=== PATIENT | female | born 1945 | race Caucasian/White ===

== ENCOUNTER → 2019-04-28 | Outpatient (CLI) | payer MEDICARE ==
[2019-04-28 12:34] LABS: Basophils % (A) 1 %; Eosinophils # (A) 0.4 k/uL (0-0.7); Eosinophils % (A) 6 %; HCT 41.2 % (34.0-46.0); HGB 13.2 gm/dL (11.4-16.0); Lymphocytes # (A) 1.2 k/uL (1.0-4.8); Lymphocytes % (A) 17 %; MCH 32.1 pg (25.0-35.0); MCHC 32.1 g/dL (31.0-37.0); Mean Platelet Volume 6.8; Monocytes # (A) 0.2 k/uL (0-1.0); Monocytes % (A) 3 %; Neutrophils # (A) 4.9 k/uL (1.3-7.7); Neutrophils % (A) 73 %; Platelet Count 181 k/uL (150-450); RBC 4.12 m/uL (3.80-5.40); RDW 13.2 % (11.5-15.5); WBC 6.8 k/uL (3.8-10.6)
[2019-04-28 12:40] LABS: INR 0.9 (<1.2); Partial Thromboplastin Time 22.3 sec (22.0-30.0); Prothrombin Time 9.5 sec (9.0-12.0)
[2019-04-28 13:19] LABS: Calcium 9.3 mg/dL (8.4-10.2); Potassium 4.3 mmol/L (3.5-5.1)
--- NOTE | 2019-04-28 16:26 | XR ---
EXAMINATION TYPE: XR chest 2V DATE OF EXAM: 04/28/2019 COMPARISON: NONE HISTORY: Presurgical, Z01.818 TECHNIQUE: Frontal and lateral views of the chest are obtained. FINDINGS: There is no focal air space opacity, pleural effusion, or pneumothorax seen. The cardiac silhouette size is within normal limits. There is a spinal curvature, thoracic lumbar scoliosis. The osseous structures are remarkable for suspected compression fracture at the lower thoracic spine, dev ne mineralization is reduced. IMPRESSION: No acute cardiopulmonary process. Suspect thoracic osteoporotic compression fracture is present
== END | disposition home or self-care (01) ==
LOC: LABPAT 10:57
PROVIDERS: ATTEND Orthopaedic Surgery Orthopaedic Surgery of the Spine
DX: Z01.818 Encounter for other preprocedural examination (principal)
CPT/HCPCS: 36415; 71046; 80048; 85025; 85610; 85730

== ENCOUNTER 2019-05-03 14:58 | Day surgery (SDC) | payer MEDICARE ==
[2019-04-29 11:25] VITALS: BMI 20.1
[~2019-05-03 14:58] MED LIST: DEXAMETHASONE SOD PHOSPHATE 10 MG/ML 1 ML VIAL IV ONE; LACTATED RINGERS 1,000 ML IV SCH; LIDOCAINE 1% 20 ML VIAL (10MG/ML) FOR IV START INTRADERMA PRN; MIDAZOLAM 2 MG/2 ML VIAL IV PRN; SODIUM CHLORIDE 0.9% IRRIGATIO 1,000 ML IRRIGATION ONE; fentaNYL (PF) 50 MCG/ML 2 ML AMP IV PRN
[2019-05-03 15:14] VITALS: TEMP 99
[2019-05-03] MEDS ORDERED: LIDOCAINE 0.5%-EPI 1:200,000 50 ML VIAL SQ ONE (17:15)
[2019-05-03] MEDS ORDERED: MIDAZOLAM 2 MG/2 ML VIAL ONE (17:15)
[2019-05-03] MEDS ORDERED: SUCCINYLCHOLINE CHLORIDE 100 MG/5 ML SYR IV ONE (17:15)
[2019-05-03] MEDS ORDERED: PROPOFOL 10 MG/ML 20 ML VIAL IV ONE (17:15)
[2019-05-03] MEDS ORDERED: PHENYLEPHRINE-0.9% NACL SYG 1 MG/10 ML SYRINGE ONE (17:15)
[2019-05-03] MEDS ORDERED: LIDOCAINE 1% INJ 10MG/ML (20 ML MDV) ONE (17:15)
[2019-05-03] MEDS ORDERED: fentaNYL (PF) 50 MCG/ML 2 ML AMP ONE (17:15)
[2019-05-03] MEDS ORDERED: IOPAMIDOL M200 10 ML VIAL MISCELLANE ONE (17:15)
[2019-05-03] MEDS ORDERED: MAGNESIUM HYDROXIDE 2,400 MG/10 ML CUP PO PRN (17:58)
[2019-05-03] MEDS ORDERED: KETOROLAC 30 MG/ML 1 ML VIAL IVP PRN (17:58)
[2019-05-03] MEDS ORDERED: BENZOCAINE/MENTHOL LOZENG 1 EACH LOZENGE MUCOUS MEM PRN (17:58)
[2019-05-03] MEDS ORDERED: HYDROmorphone 0.5 MG/0.5 ML SYRINGE IVP PRN (17:58)
[2019-05-03] MEDS ORDERED: ONDANSETRON 4 MG/2 ML VIAL IVP ONE (17:58)
[2019-05-03] MEDS ORDERED: HYDROcodone/APAP 5-325MG 1 EACH TAB PO PRN (17:58)
[2019-05-03] MEDS ORDERED: ALBUTEROL NEBULIZED 2.5 MG/3 ML INHALATION PRN (18:00)
[2019-05-03] MEDS ORDERED: GABAPENTIN 300 MG CAP PO PRN (18:00)
[2019-05-03] MEDS ORDERED: SODIUM CHLORIDE 0.9% 1,000 ML IV SCH (18:00)
--- NOTE | 2019-05-03 18:20 | P.OP ---
Date of Procedure: 05/03/19 Preoperative Diagnosis: T12 compression fracture, osteoporotic Thoracolumbar back pain Postoperative Diagnosis: Same Anesthesia: GETA Pathology: other (T12 vertebral body sent to pathology) Condition: stable Disposition: PACU Description of Procedure: BRIEF OPERATIVE NOTE Preoperative Diagnosis: Vertebral compression fracture, T12 osteoporotic Postoperative Diagnosis: Same Procedure: Kyphoplasty T12 Vertebral body biopsy T12 Use of biplanar fluoroscopic guidance Surgeon: Dr. Patel Structural Drafter: Aravind Potter is present throughout the entire the case persistence during positioning, dissection, exposure, visualization, and all crucial elements of the case as well as closure. Anesthesia: General anesthesia per Dr. Erwin Estimated blood loss: Less than 10 mL Specimen: Vertebral body biopsy of T12 sent to pathology in formalin Complications: None apparent Components implanted: Bone cement Disposition: To recovery room in good stable condition. OPERATIVE INDICATIONS The patient has been having issues in their back ever since sustaining an injury several months ago. The patient has been through conservative treatment. They attempted conservative care with bracing however they're not having any benefit despite brace use. They continue to have significant pain and debility due to their fracture. We discussed various treatment options including surgery, and the patient wishes to proceed with surgery We discussed the risk, patient's alternatives and benefits of surgery including but not limited to, risk of bleeding risk of infection, risk of need for further surgery, risk of decreased, loss of motion, loss of function, cement extravasation, nerve damage, paralysis, heart attack, blindness and . OPERATIVE SUMMARY After discussing all the risks, patient alternatives and benefits at length, the patient elected to proceed with surgical intervention, signed informed consent, and presented for their procedure. The patient was seen and examined in the preoperative holding area and the surgical site was marked. The patient was given antibiotics and brought to the operating room. The patient was sedated and intubated by anesthesia in standard fashion. The patient was positioned on to the operating room table in a prone position on the appropriate well-padded and well molded bilateral chest rolls. We were careful to pad any bony prominences and pressure points. We were careful to maintain the patient's cervical spine and good neutral alignment and position throughout. We used 2 C-arm machines to establish biplanar fluoroscopic guidance in AP and lateral positions. We were able to localize the fractures appropriately. The patient was prepped and draped in a normal standard fashion. An appropriate timeout and keystone protocol performed. We were able to proceed with the surgery. The local wound area was infiltrated with local anesthetic. An incision was made over the lateral aspect of the pedicle over the appropriate levels of T12 with a small 2 mm stab incision. Intraoperative fluoroscopy was taken which showed a marker at the appropriate level. With the appropriate level positively confirmed, I was able to position a sharp trocar over the lateral aspect of the pedicle. As able to advance the trocar into the pedicle and into the posterior aspect of vertebral body being careful to avoid penetration cephalad caudad or medially. The trocar was placed appropriately into the posterior aspect of vertebral body at the appropriate levels. This was confirmed with C-arm guidance. With the trocar intact I was then able to take a bone biopsy with a biopsy punch or a bony drill. The biopsy specimen was passed off to be sent to pathology in formalin. I was then able to place the kyphoplasty balloon within the vertebral body at T12. The position was checked on C-arm. I was able to inflate the balloon under low pressure and visualization with C-arm. The balloon was well enclosed within the vertebral body. The cement was prepared. With the cement at appropriate working condition the balloons were deflated and removed. I was able to place bony cement with trocar with the cement delivery device under low pressure. It had good fill within the vertebral body. We will place approximately 6 mL of bone cement within the vertebral body There is no evidence of any extravasation of the cement posteriorly toward the canal. The cement was well contained at the appropriate levels. The cement was allowed to cure appropriately. The trochars removed and final images were taken on C-arm. This showed the cement at the appropriate levels of T12. We were able to proceed with closure. The wound was cleaned and dried and dressed with the appropriate dressing. The drapes were broken down. The patient was gently rolled back onto their hospital bed being careful to maintain their cervical spine and good neutral alignment and position. They were woken up by anesthesia, extubated, and brought to the recovery room in good stable condition. The patient will be admitted to the hospital for observation and for appropriate postoperative care, medical management and monitoring. We will continue to follow them closely about the postoperative course.
[2019-05-03 19:21] VITALS: RESP 18
[2019-05-03 19:31] VITALS: BP 145/75; PULSE 75
--- NOTE | 2019-05-04 08:34 | FL ---
EXAMINATION TYPE: FL guidance operating room DATE OF EXAM: 05/03/2019 HISTORY: Flouroscopy time 63.9 seconds of fluoroscopy provided. IMPRESSION: 1. Fluoroscopy time.
[2019-05-04] MEDS ORDERED: ASCORBIC ACID 500 MG TAB PO SCH (09:00)
[2019-05-04] MEDS ORDERED: [UNRECOGNIZED DRUG - OTHER] PO SCH (09:00)
[2019-05-04] MEDS ORDERED: MULTIVITAMINS, THERA 1 EACH TAB PO SCH (09:00)
[2019-05-04] MEDS ORDERED: CALCIUM CARBONATE PO SCH (09:00)
[2019-05-04] MEDS ORDERED: VITAMIN D3 PO SCH (09:00)
== END 2019-05-03 19:50 | disposition home or self-care (01) ==
LOC: OR 14:58
PROVIDERS: ATTEND Orthopaedic Surgery Orthopaedic Surgery of the Spine
DX: M80.88XA Other osteoporosis with current pathological fracture, vertebra(e), initial encounter for fracture (principal); M41.26 Other idiopathic scoliosis, lumbar region; M47.26 Other spondylosis with radiculopathy, lumbar region; M51.37 Other intervertebral disc degeneration, lumbosacral region; M48.07 Spinal stenosis, lumbosacral region; M48.061 Spinal stenosis, lumbar region without neurogenic claudication; I51.9 Heart disease, unspecified; E78.5 Hyperlipidemia, unspecified; Z96.653 Presence of artificial knee joint, bilateral; Z83.3 Family history of diabetes mellitus; Z87.891 Personal history of nicotine dependence; I34.1 Nonrheumatic mitral (valve) prolapse; J45.909 Unspecified asthma, uncomplicated; Z85.828 Personal history of other malignant neoplasm of skin; Z79.1 Long term (current) use of non-steroidal anti-inflammatories (NSAID); Z79.899 Other long term (current) drug therapy; Z79.82 Long term (current) use of aspirin; Z79.891 Long term (current) use of opiate analgesic
CPT/HCPCS: 22513; 86900; 86901; 86850; 88307; 88311; 72020; C1713; J2250; J0690; J2001; J3010; J2370; J0330; J2704; Q9966

== ENCOUNTER → 2019-08-26 | Outpatient (CLI) | payer MEDICARE ==
--- NOTE | 2019-08-26 12:42 | CT ---
EXAMINATION TYPE: CT abdomen pelvis w con DATE OF EXAM: 08/26/2019 COMPARISON: NONE HISTORY: 73-year-old female Unspecified acute appendicitis, left sided pain TECHNIQUE: Contiguous axial scanning of the abdomen and pelvis following administration of 100 ml Iso jodi 300 IV contrast. Delayed images through the kidneys and coronal/sagittal reconstructions perform ed. CT DLP: 784 mGycm Automated exposure control for dose reduction was used. FINDINGS: Heart borderline enlarged without pericardial effusion. Small left-sided fat-containing [place] her rehana. Scattered moderate atherosclerotic calcifications abdominal aorta without aneurysm. No focal liver lesion. Portal venous system is patent. Bile duct mildly dilated 8 mm probably chronic in this patient. There is normal distal tapering. Gallbladder, right kidney,, spleen, and pancreas appear within normal limits. Parapelvic cysts within the left kidney. No dilated small bowel, free fluid, or free air. No mesenteric or retroperitoneal lymphadenopathy. Normal appendix. Scattered mild stool. Mild sigmoid diverticulosis. No pericolonic inflammatory harris e seen. No mesenteric or retroperitoneal lymphadenopathy. Bladder is urine distended. Mild bulging laxity of the levator ani musculature. Uterus is anteverted. Small ovaries are visualized. No abnormal fluid collection in the pelvis or pelvic lymphadenopathy. Bones: Osteopenia. Superior endplate deformity of L4 and vertebral compression collapse of T12 with p rior vertebroplasty. Mild retropulsion into the ventral spinal canal at this level. IMPRESSION: 1. MILD SIGMOID DIVERTICULOSIS WITHOUT EVIDENCE FOR ACUTE DIVERTICULITIS. 2. NORMAL APPENDIX. 3. MILD PELVIC FLOOR RELAXATION. 4. PRIOR VERTEBROPLASTY AT T12. CHRONIC APPEARING SUPERIOR ENDPLATE DEFORMITY OF L4.
== END | disposition home or self-care (01) ==
LOC: RADCTMAIN 10:25
PROVIDERS: ATTEND Surgery
DX: K57.30 Diverticulosis of large intestine without perforation or abscess without bleeding (principal); N81.89 Other female genital prolapse
CPT/HCPCS: 82565; 84520; 74177; 36415; Q9967 ×2

== ENCOUNTER 2019-10-08 11:05 | Inpatient (IN) | payer MEDICARE ==
[2019-10-08] MEDS ORDERED: HEPARIN SODIUM,PORCINE 5,000 UNIT/ML 1 ML VIAL IV STA ×2 (11:10)
[2019-10-08] MEDS ORDERED: NITROGLYCERIN SL TABS 0.4 MG TAB SUBLINGUAL PRN ×2 (11:10→12:07)
[2019-10-08] MEDS ORDERED: HEPARIN SOD,PORK IN 0.45% NACL 25,000 UNIT in 0.45% NACL 1 250ML.BAG IV SCH (11:15)
--- NOTE | 2019-10-08 11:15 | ED ---
General Adult HPI - General Stated complaint: Chest pain - History of Present Illness Initial comments: Dictation was produced using [email or web address] dictation software. please excuse any grammatical, word or spelling errors. Chief Complaint: 73-year-old female presents with chief complaint of chest pain History of Present Illness: 73-year-old female presents with chief complaint of chest pain. Patient states she was at home showing stone she developed acute onset substernal chest pressure. She states that the pain is like a significant pressure to her substernal chest. She states it radiates to the back. Patient denies any radiation to the extremities or jaw. There is associated diaphoresis. Patient has a history of coronary artery disease. He does however report strong family history. Patient was brought in by EMS. EMS was called and provided patient with heparin and nitroglycerin. It has past medical history dyslipidemia. She does not have any other known problems. The ROS documented in this emergency department record has been reviewed and confirmed by me. Those systems with pertinent positive or negative responses have been documented in the HPI. All other systems are other negative and/or noncontributory. PHYSICAL EXAM: General Impression: Alert and oriented x3, acute distress secondary to pain, diaphoretic HEENT: Normocephalic atraumatic, extra-ocular movements intact, pupils equal and reactive to light bilaterally, mucous membranes moist. Cardiovascular: Heart regular rate and rhythm, S1&S2 audible, no murmurs, rubs or gallops Chest: Lungs clear to auscultation bilaterally, no rhonchi, no wheeze, no rales Abdomen: Bowel sounds present, abdomen soft, non-tender, non-distended, no organomegaly Musculoskeletal: Pulses present and equal in all extremities, no peripheral edema Motor: no focal deficits noted Neurological: CN II-XII grossly intact, no focal motor or sensory deficits noted Skin: Intact with no visualized rashes Psych: Anxious ED course: 73-year-old female presents with clinical presentation concerning for acute coronary syndrome. EKG consistent with acute ST segment elevation NV to the anteroseptal portion. It appears to be ST segment elevation in the anteroseptal leads with reciprocal changes in the inferior leads. There is also ST elevation in the high lateral leads. This is concerning for proximal left circulation occlusion. Discussed patient case with Dr. Roberts who will take patient to the director labor standards. Patient had a repeat received aspirin and nitro glycerin from ems. EKG interpretation: Ventricular rate is 66, normal sinus rhythm,. Interval 142, QRS 92, QTC 423. No VT prolongation, no QTC prolongation, ST segment elevation in V1 through V3, 1 and aVL with reciprocal changes in inferior leads. Consistent with acute ST segment elevation NV - Related Data Home Medications Medication Instructions Recorded Confirmed Albuterol Inhaler [Ventolin Hfa 1 - 2 puff INHALATION DIRECTED 04/29/19 05/03/19 Inhaler] PRN Ascorbic Acid [Vitamin C] 500 mg PO DAILY 04/29/19 04/29/19 Calcium Carbonate/Vitamin D3 1 each PO DAILY 04/29/19 04/29/19 [Calcium 600-Vit D3 200 Tablet] Fish Oil Softgel 1 tab PO DAILY 04/29/19 04/29/19 Gabapentin [Neurontin] 300 mg PO TID PRN 04/29/19 05/03/19 Multivitamins, Thera [Multivitamin 1 tab PO DAILY 04/29/19 04/29/19 (formulary)] Previous Rx's Medication Instructions Recorded traMADol HCL [Ultram] 50 mg PO Q4HR PRN 3 Days #18 tab 05/03/19 Allergies Allergy/AdvReac Type Severity Reaction Status Date / Time No Known Allergies Allergy Verified 05/03/19 15:11 Review of Systems ROS Statement: Those systems with pertinent positive or pertinent negative responses have been documented in the HPI. ROS Other: All systems not noted in ROS Statement are negative. Past Medical History Past Medical History: Asthma, Cancer, Hyperlipidemia, Mitral Valve Prolapse (MVP), Osteoarthritis (OA) Additional Past Medical History / Comment(s): varicose veins, degenerative disks, hx skin cancer History of Any Multi-Drug Resistant Organisms: None Reported Past Surgical History: Breast Surgery, Joint Replacement, Tonsillectomy Additional Past Surgical History / Comment(s): claude knee replacement, claude breast implants Past Anesthesia/Blood Transfusion Reactions: No Reported Reaction Smoking Status: Never smoker - Past Family History Sister(s) Family Medical History: Cancer Course Vital Signs 10/08/19 11:11 Temperature 96.5 F L Pulse Rate 65 Respiratory 24 Rate Blood Pressure 126/87 O2 Sat by Pulse 100 Oximetry Critical Care Time Critical Care Time: Yes Total Critical Care Time: 15 Disposition Clinical Impression: STEMI (ST elevation myocardial infarction) Disposition: ADMITTED IP TO THIS HOSP Condition: Critical Referrals: Judy Freedman MD [Primary Care Provider] - 1-2 days Decision Time: 11:23
[2019-10-08] MEDS ORDERED: LIDOCAINE 1% INJ 10MG/ML (20 ML MDV) ONE (11:18)
[2019-10-08] MEDS ORDERED: NALOXONE 0.4 MG/ML 1 ML VIAL IV PRN (11:22)
[2019-10-08 11:24] LABS: Basophils % (A) 1 %; Eosinophils # (A) 0.2 k/uL (0-0.7); Eosinophils % (A) 3 %; HCT 43.1 % (34.0-46.0); HGB 13.5 gm/dL (11.4-16.0); Lymphocytes # (A) 2.1 k/uL (1.0-4.8); Lymphocytes % (A) 33 %; MCH 30.6 pg (25.0-35.0); MCHC 31.3 g/dL (31.0-37.0); MCV 97.9 fL (80.0-100.0); Mean Platelet Volume 7.9; Monocytes # (A) 0.3 k/uL (0-1.0); Monocytes % (A) 5 %; Neutrophils # (A) 3.6 k/uL (1.3-7.7); Neutrophils % (A) 56 %; Platelet Count 186 k/uL (150-450); RBC 4.41 m/uL (3.80-5.40); RDW 12.4 % (11.5-15.5); WBC 6.5 k/uL (3.8-10.6)
[2019-10-08] MEDS ORDERED: ONDANSETRON 4 MG/2 ML VIAL ONE (11:24)
[2019-10-08] MEDS ORDERED: ONDANSETRON 4 MG/2 ML VIAL IVP ONE (11:33)
[2019-10-08] MEDS ORDERED: IV FLUID CONTINUATION 1,000 ML IV ONE (11:33)
[2019-10-08] MEDS ORDERED: MIDAZOLAM 2 MG/2 ML VIAL IV ONE (11:33)
--- NOTE | 2019-10-08 11:34 | XR ---
EXAMINATION TYPE: XR chest 1V portable DATE OF EXAM: 10/08/2019 COMPARISON: 04/28/2019 HISTORY: Chest pain TECHNIQUE: Single frontal view of the chest is obtained. FINDINGS: Minimal linear atelectasis at the left lung base. There is no focal air space opacity, ple ural effusion, or pneumothorax seen. There is pulmonary hyperinflation suggesting COPD. The cardiac silhouette size is within normal limits. The osseous structures are intact. There is a levoscoliosi s of the thoracolumbar junction with kyphoplasty change. IMPRESSION: Minimal left basilar subsegmental atelectasis. Otherwise chronic changes.
[2019-10-08] MEDS ORDERED: LIDOCAINE 1% INJ 10MG/ML (20 ML MDV) SQ ONE (11:37)
[2019-10-08] MEDS ORDERED: HYDROmorphone 1 MG/ML 1 ML SYRINGE ONE (11:39)
[2019-10-08] MEDS ORDERED: HYDROmorphone 1 MG/ML 1 ML SYRINGE IVP ONE (11:40)
[2019-10-08 11:41] LABS: Prothrombin Time 10.2 sec (9.0-12.0)
[2019-10-08 11:42] LABS: Albumin 4.2 g/dL (3.5-5.0); Calcium 9.5 mg/dL (8.4-10.2); Potassium 4.3 mmol/L (3.5-5.1); Total Bilirubin 0.5 mg/dL (0.2-1.3)
[2019-10-08] MEDS ORDERED: BIVALIRUDIN BOLUS 250 MG/50 ML IV ONE (11:42)
[2019-10-08] MEDS ORDERED: BIVALIRUDIN 250 MG in SODIUM CHLORIDE 0.9% 50 ML IV ONE (11:43)
[2019-10-08 11:51] LABS: Partial Thromboplastin Time 20.6 sec (22.0-30.0)
[2019-10-08] MEDS ORDERED: niCARdipine 25 MG/10 ML VIAL ONE (11:55)
[2019-10-08] MEDS ORDERED: TICAGRELOR 90 MG TAB ONE (12:00)
[2019-10-08] MEDS ORDERED: TICAGRELOR 90 MG TAB PO ONE (12:03)
[2019-10-08 12:05] LABS: Creatine Kinase MB 1.3 ng/mL (0.0-2.4)
[2019-10-08] MEDS ORDERED: IOPAMIDOL-370 125ML BTL INJ ONE (12:06)
[2019-10-08] MEDS ORDERED: ATROPINE SULFATE 0.1 MG/ML 10ML SYRINGE IV PRN (12:07)
[2019-10-08] MEDS ORDERED: ZOLPIDEM 5 MG TAB PO PRN (12:07)
[2019-10-08] MEDS ORDERED: MAG HYDROX/AL HYDROX/SIMETH 30 ML CUP PO PRN (12:07)
[2019-10-08] MEDS ORDERED: RX INFO: IV CONTRAST WAS GIVEN 1 EACH MISC MISCELLANE PRN (12:07)
[2019-10-08 12:09] LABS: Troponin I 0.088 ng/mL (0.000-0.034)
[2019-10-08] MEDS ORDERED: SODIUM CHLORIDE 0.9% 1,000 ML IV SCH (12:15)
--- NOTE | 2019-10-08 12:19 | P.CRDCN ---
History of Present Illness Consult date: 10/08/19 Chief complaint: Chest pain History of present illness: This is a very pleasant 73-year-old female patient with a past medical history significant for hypertension and dyslipidemia who presented to the hospital with a chest discomfort. The patient was in her usual state of 4 where she was shoveling snow earlier today and started experiencing discomfort in the mid of the chest, as a pressure on the chest, with some radiation to the back as well as to the neck. She decided to come to the emergency room where the EKG revealed sinus rhythm with acute anterior ST elevation myocardial infarctions finding. Because of that an emergent heart catheterization was advised. The patient underwent a heart catheterization which revealed acute total occlusion of the mid LAD with a large thrombus burden and also she was found to have an intermediate to severe disease involving the mid RCA. She underwent successful stenting of the LAD with an excellent angiographic results and reduction of stenosis from 90% to 0%. The patient was chest pain-free by the end of the procedure. She will be admitted to the intensive care unit. She will be star carmel on dual antiplatelet therapy along with high intensity statin along with anti-ischemic medications with beta delaney as well as MAY inhibitor. An echocardiogram also would be performed. Past Medical History Past Medical History: Asthma, Cancer, Hyperlipidemia, Mitral Valve Prolapse (MVP), Osteoarthritis (OA) Additional Past Medical History / Comment(s): varicose veins, degenerative disks, hx skin cancer History of Any Multi-Drug Resistant Organisms: None Reported Past Surgical History: Breast Surgery, Joint Replacement, Tonsillectomy Additional Past Surgical History / Comment(s): claude knee replacement, claude breast implants Past Anesthesia/Blood Transfusion Reactions: No Reported Reaction Smoking Status: Never smoker - Past Family History Sister(s) Family Medical History: Cancer Medications and Allergies Home Medications Medication Instructions Recorded Confirmed Type Albuterol Inhaler [Ventolin Hfa 1 - 2 puff INHALATION DIRECTED 04/29/19 05/03/19 History Inhaler] PRN Ascorbic Acid [Vitamin C] 500 mg PO DAILY 04/29/19 04/29/19 History Calcium Carbonate/Vitamin D3 1 each PO DAILY 04/29/19 04/29/19 History [Calcium 600-Vit D3 200 Tablet] Fish Oil Softgel 1 tab PO DAILY 04/29/19 04/29/19 History Gabapentin [Neurontin] 300 mg PO TID PRN 04/29/19 05/03/19 History Multivitamins, Thera [Multivitamin 1 tab PO DAILY 04/29/19 04/29/19 History (formulary)] traMADol HCL [Ultram] 50 mg PO Q4HR PRN 3 Days #18 tab 05/03/19 Rx Allergies Allergy/AdvReac Type Severity Reaction Status Date / Time No Known Allergies Allergy Verified 05/03/19 15:11 Physical Exam Vitals: Vital Signs Temp Pulse Pulse Resp BP Pulse Ox 10/08/19 11:24 68 10/08/19 11:11 96.5 F L 65 24 126/87 100 10/08/19 11:10 126/87 10/08/19 11:06 122/78 Intake and Output 10/07/19 10/08/19 10/08/19 22:59 06:59 14:59 Intake Total 635 Balance 635 Intake: IV 635 Other: Weight 56.699 kg - Constitutional General appearance: no acute distress - Respiratory Respiratory: bilateral: CTA - Cardiovascular Rhythm: regular Heart sounds: normal: S1, S2 Abnormal Heart Sounds: systolic murmur Results 10/08/19 11:11 10/08/19 11:11 Cardiac Enzymes 10/08/19 10/08/19 Range/Units 11:11 11:11 AST 38 H (14-36) U/L CK-MB (CK-2) 1.3 (0.0-2.4) ng/mL Troponin I 0.088 H* (0.000-0.034) ng/mL Coagulation 10/08/19 Range/Units 11:11 PT 10.2 (9.0-12.0) sec APTT 20.6 L (22.0-30.0) sec CBC 10/08/19 Range/Units 11:11 WBC 6.5 (3.8-10.6) k/uL RBC 4.41 (3.80-5.40) m/uL Hgb 13.5 (11.4-16.0) gm/dL Hct 43.1 (34.0-46.0) % Plt Count 186 (150-450) k/uL Comprehensive Metabolic Panel 10/08/19 Range/Units 11:11 Sodium 137 (137-145) mmol/L Potassium 4.3 (3.5-5.1) mmol/L Chloride 103 (98-107) mmol/L Carbon Dioxide 26 (22-30) mmol/L BUN 19 H (7-17) mg/dL Creatinine 0.87 (0.52-1.04) mg/dL Glucose 155 H (74-99) mg/dL Calcium 9.5 (8.4-10.2) mg/dL AST 38 H (14-36) U/L ALT 19 (4-34) U/L Alkaline Phosphatase 80 (38-126) U/L Total Protein 7.0 (6.3-8.2) g/dL Albumin 4.2 (3.5-5.0) g/dL Current Medications Generic Name Dose Route Start Last Admin Trade Name Freq PRN Reason Stop Dose Admin Al Hydroxide/Mg Hydroxide 30 ml 10/08/19 12:07 Maalox PO Q4HR PRN Heartburn Aspirin 81 mg 10/09/19 09:00 Aspirin PO DAILY [facility] Atorvastatin Calcium 80 mg 10/08/19 21:00 Lipitor PO HS [facility] Atropine Sulfate 0.5 mg 10/08/19 12:07 Atropine IV ONCE PRN Symptomatic Bradycardia Heparin Sodium/Sodium Chloride 250 mls @ 6.804 mls/hr 10/08/19 11:15 25,000 unit/ Sodium Chloride IV .Q24H [facility] Protocol 12 UNITS/KG/HR Sodium Chloride 1,000 mls @ 75 mls/hr 10/08/19 12:15 Saline 0.9% IV 10/08/19 18:16 .[id number] [facility] Lisinopril 2.5 mg 10/09/19 09:00 Zestril PO DAILY [facility] Metoprolol Tartrate 25 mg 10/08/19 21:00 Lopressor PO BID [facility] Miscellaneous Information 1 each 10/08/19 12:07 Rx Info: Iv Contrast Was Given MISCELLANE 10/10/19 12:07 DAILY PRN Per Protocol Naloxone HCl 0.2 mg 10/08/19 11:22 Narcan IV Q2M PRN Opioid Reversal Nitroglycerin 0.4 mg 10/08/19 12:07 Nitrostat SUBLINGUAL Q5M PRN Chest Pain Ticagrelor 90 mg 10/08/19 21:00 Brilinta PO BID [facility] Zolpidem Tartrate 5 mg 10/08/19 12:07 Ambien PO HS PRN Insomnia Intake and Output 10/07/19 10/08/19 10/08/19 22:59 06:59 14:59 Intake Total 635 Balance 635 Intake: IV 635 Other: Weight 56.699 kg Patient Weight 10/09/19 06:59 Weight 56.699 kg 10/08/19 11:11 10/08/19 11:11 Assessment and Plan Assessment: Assessment #[address] patient myocardial infarction and status post PCI of the RCA #2 intermediate to severe disease involving the mid RCA #3 hypertension #4 dyslipidemia Plan #1 an echocardiogram to establish LV function #2 dual antiplatelet therapy along with anti-ischemic medication #3 standard to groin care #4 ICU admission #5 follow-up with the patient Thank you for allowing us participate in her care
--- NOTE | 2019-10-08 12:42 | CC ---
CARDIAC CATHETERIZATION REPORT CARDIAC CATHETERIZATION AND PERCUTANEOUS CORONARY INTERVENTION: DATE OF SERVICE: 10/08/2019 PERFORMING PHYSICIAN: Dexter Orosco MD. PROCEDURE PERFORMED: 1. Repeat selective right and left coronary angiogram. 2. Aspiration thrombectomy from the left anterior descending artery with the extraction of multiple small red thrombus. 3. Successful stenting of the mid left anterior descending artery using 2.5 x 18 mm Xience ETTA with an excellent angiographic results and reduction of stenosis from 100% to 0%. 4. Left heart catheterization. INDICATION: This is a 73-year-old female patient with hypertension and dyslipidemia who presented to the hospital with chest discomfort and was found to have to be in acute anterior ST- elevation myocardial infarction. Because of that, an emergent heart catheterization was advised. APPROACH: Right common femoral artery. COMPLICATION: None. LEVEL OF SEDATION: Moderate with sedation length of 24 minutes. Door to balloon was 41 minutes. PROCEDURE DESCRIPTION: After obtaining an informed consent, the patient was brought to the cardiac biology laboratory assistant. The right common femoral artery was cannulated using micropuncture technique, the micropuncture wire passed easily, then I placed a 6-Yi sheath at the right common femoral artery. After that, I did selective right and left coronary angiogram. Selective right coronary angiogram was performed using JR 3.5 and JL3.5 catheters. After that, I did intervene on the LAD. Please see a separate paragraph for that. After that, I did leave heart catheterization. Also, please see a separate paragraph for that. SELECTIVE CORONARY ANGIOGRAM: 1. The right coronary artery is a large caliber vessel and is a dominant vessel. It is a calcified vessel as well. The proximal RCA appeared to be angiographically normal. The mid RCA has a lesion appeared to be in the range of 60% to 70%. The RCA distally appeared to be normal and bifurcates into PDA and PLV branches, both appeared to be angiographically normal. 2. The left main has mild disease only. It bifurcates into LCX and LAD. 3. The LCX is a large caliber vessel, it is a nondominant vessel and appeared to be angiographically normal. 4. The LAD is 100% occluded in the midportion. The proximal LAD appeared to be angiographically normal. PCI OF THE LAD: Anticoagulation was initiated using Angiomax with bolus and drip per protocol. Subsequently, I did engage the left main using JL3.5 guide. I did wire the LAD using a whisper wire. After that, I did aspiration thrombectomy from the the left anterior descending artery and I was able to aspirate multiple red thrombus. Subsequently, I did balloon angioplasty using 2.5 x 12 mm balloon before I deployed 2.5 x 18 mm Xience ETTA where the stent was positioned under fluoroscopy guidance and deployed under its nominal pressure under 12 atmospheres for 20 seconds. The following angiogram showed excellent angiographic results and the procedure was completed without any complication. HEMODYNAMICS: The LVEDP was about 16-18 mmHg without significant gradient across the aortic valve. CONCLUSION: 1. Acute anterior ST-elevation myocardial infarction. 2. Acute total occlusion of the mid left anterior descending artery. 3. Successful stenting of the mid left anterior descending artery using 2.5 x 18 mm Xience ETTA with an excellent angiographic results. 4. Intermediate to severe disease involving the mid RCA. 5. Mildly elevated LVEDP. POSTPROCEDURE MANAGEMENT: 1. Dual anti-platelet therapy. 2. Risk factor modifications. 3. Aggressive cholesterol control. 4. Assess for ischemia in the RCA territory. MMODL / IJN: [id number] /
[2019-10-08 12:43] LABS: Glucose,Whole Blood 110 mg/dL (75-99)
--- NOTE | 2019-10-08 12:58 | P.HPIM ---
History of Present Illness This is a pleasant 73 years old female with past medical history of asthma, hyperlipidemia, mitral valve prolapse, osteoarthritis, skin cancer. Presents because of chest pain. Patient was doing Snow showing this morning when he st arted having central chest pain, radiating to the back, it was severe 10/10, felt like pressure. Associated with some sweating but no dizziness or dyspnea. Patient presented to the emergency room and her troponins were elevated at 0.08 and EKG was showing ST elevation in the anterior lateral leads especially at V1- V4. Patient was taken to the [facility] and found to have acute total occlusion of the mid left anterior descending artery with successful stenting and intermediate to severe disease involving the patient denies history of smoking, alcohol or illicit drugs mid RCA Review of Systems CONSTITUTIONAL: No fever, no malaise, no fatigue. HEENT: No recent visual problems or hearing problems. Denied any sore throat. CARDIOVASCULAR: No orthopnea, PND, no palpitations, no syncope. PULMONARY: No shortness of breath, no cough, no hemoptysis. GASTROINTESTINAL: No diarrhea, no nausea, no vomiting, no abdominal pain. Normoactive bowel sounds. NEUROLOGICAL: No headaches, no weakness, no numbness. HEMATOLOGICAL: Denies any bleeding or petechiae. GENITOURINARY: Denies any burning micturition, frequency, or urgency. MUSCULOSKELETAL/RHEUMATOLOGICAL: Denies any joint pain, swelling, or any muscle pain. ENDOCRINE: Denies any polyuria or polydipsia. Past Medical History Past Medical History: Asthma, Cancer, Hyperlipidemia, Mitral Valve Prolapse (MVP), Osteoarthritis (OA) Additional Past Medical History / Comment(s): varicose veins, degenerative disks, hx skin cancer History of Any Multi-Drug Resistant Organisms: None Reported Past Surgical History: Breast Surgery, Joint Replacement, Tonsillectomy Additional Past Surgical History / Comment(s): claude knee replacement, claude breast implants Past Anesthesia/Blood Transfusion Reactions: No Reported Reaction Smoking Status: Never smoker - Past Family History Sister(s) Family Medical History: Cancer Medications and Allergies Home Medications Medication Instructions Recorded Confirmed Type Albuterol Inhaler [Ventolin Hfa 1 - 2 puff INHALATION DIRECTED 04/29/19 05/03/19 History Inhaler] PRN Ascorbic Acid [Vitamin C] 500 mg PO DAILY 04/29/19 04/29/19 History Calcium Carbonate/Vitamin D3 1 each PO DAILY 04/29/19 04/29/19 History [Calcium 600-Vit D3 200 Tablet] Fish Oil Softgel 1 tab PO DAILY 04/29/19 04/29/19 History Gabapentin [Neurontin] 300 mg PO TID PRN 04/29/19 05/03/19 History Multivitamins, Thera [Multivitamin 1 tab PO DAILY 04/29/19 04/29/19 History (formulary)] traMADol HCL [Ultram] 50 mg PO Q4HR PRN 3 Days #18 tab 05/03/19 Rx Allergies Allergy/AdvReac Type Severity Reaction Status Date / Time No Known Allergies Allergy Verified 05/03/19 15:11 Physical Exam Vitals: Vital Signs Temp Pulse Pulse Resp BP Pulse Ox 10/08/19 11:24 68 10/08/19 11:11 96.5 F L 65 24 126/87 100 10/08/19 11:10 126/87 10/08/19 11:06 122/78 Intake and Output 10/07/19 10/08/19 10/08/19 22:59 06:59 14:59 Intake Total 635 Balance 635 Intake: IV 635 Other: Weight 56.699 kg GENERAL: The patient is alert and oriented x3, not in any acute distress. Well developed, well nourished. HEENT: Pupils are round and equally reacting to light. EOMI. No scleral icterus. No conjunctival pallor. Normocephalic, atraumatic. No pharyngeal erythema. No thyromegaly. CARDIOVASCULAR: S1 and S2 present. No murmurs, rubs, or gallops. PULMONARY: Chest is clear to auscultation, no wheezing or crackles. ABDOMEN: Soft, nontender, nondistended, normoactive bowel sounds. No palpable organomegaly. MUSCULOSKELETAL: No joint swelling or deformity. EXTREMITIES: No cyanosis, clubbing, or pedal edema. NEUROLOGICAL: Gross neurological examination did not reveal any focal deficits. SKIN: No rashes. No petechiae Results CBC & Chem 7: 10/08/19 11:11 10/08/19 11:11 Labs: Abnormal Lab Results - Last 24 Hours (Table) 10/08/19 10/08/19 10/08/19 Range/Units 11:11 11:11 11:11 APTT 20.6 L (22.0-30.0) sec BUN 19 H (7-17) mg/dL Glucose 155 H (74-99) mg/dL POC Glucose (mg/dL) (75-99) mg/dL AST 38 H (14-36) U/L Troponin I 0.088 H* (0.000-0.034) ng/mL 10/08/19 Range/Units 12:41 APTT (22.0-30.0) sec BUN (7-17) mg/dL Glucose (74-99) mg/dL POC Glucose (mg/dL) 110 H (75-99) mg/dL AST (14-36) U/L Troponin I (0.000-0.034) ng/mL Assessment and Plan Assessment: Acute anterior ST elevation myocardial infarction, status post coronary angiogram and stenting of the mid LAD and moderate to severe disease of the mid right coronary artery Hyperlipidemia Mitral valve prolapse Osteoarthritis Asthma, not an active issue Plan: This is a pleasant 73 years old female who presents with acute anterior STEMI, she is status post cardiac cath and stent placement in the LAD. Continue with cardiology recommendation. Continue with dual antiplatelet therapy Labs and medication were reviewed.. Continue same treatment. Continue with symptomatic treatment. Resume home medication. Monitor lytes and vitals. DVT and GI prophylaxis. Further recommendations of the clinical course of the patient
[2019-10-08] MEDS: ATORVASTATIN 80 MG TAB PO SCH (21:57)
[2019-10-08] MEDS: TICAGRELOR 90 MG TAB PO SCH (21:57)
[2019-10-08] MEDS: METOPROLOL TARTRATE 25 MG TAB PO SCH (21:57)
[2019-10-09 05:55] LABS: African American GFR (CKD) >90 (>60 ml/min/1.73 sqM); Non-African American GFR(CKD) 84 (>60 ml/min/1.73 sqM)
[2019-10-09] MEDS: ASPIRIN 81 MG PO SCH (08:04)
[2019-10-09] MEDS: TICAGRELOR 90 MG TAB PO SCH ×2 (08:04→20:35)
[2019-10-09] MEDS: METOPROLOL TARTRATE 25 MG TAB PO SCH ×2 (08:04→20:34)
[2019-10-09] MEDS: LISINOPRIL 2.5 MG TAB PO SCH (09:15)
--- NOTE | 2019-10-09 09:50 | P.PN ---
Subjective This is Eliane Roblero PA-C dictating a progress note on this patient The patient was interviewed and examined by me as well as by Dr. Reynaga Case discussed with Dr. Reynaga and he agrees with the plan of care HPI/interval history Patient is a 73-year-old female with a past medical history of hypertension and dyslipidemia who presented with complaints of chest discomfort. She was found to have an acute anterior ST elevation [place] and underwent emergent heart catheterization. Catheterization revealed acute total occlusion of the mid LAD and intermediate to severe disease involving the mid RCA. She underwent successful stenting to the LAD. Patient seen and examined in the ICU. She states her chest pain completely resolved after the stent was placed. She denies any symptoms. No chest pain, shortness of breath, palpitations or d izziness. Her blood pressure has been running low but she has been asymptomatic from this. She states she got up and went to the bathroom several times did not have any dizziness with walking. 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 CAD of RCA Hypertension Dyslipidemia Asthma PLAN: An echocardiogram has been ordered, awaiting results Continue dual antiplatelet therapy, statins Hold lisinopril due to hypotension Continue low-dose metoprolol, should only be held for blood pressure less than 80 mmHg systolic She may be transfered to selective unit Objective - Vital Signs Vital signs: Vital Signs Temp 98.3 F 10/09/19 08:00 Pulse 62 10/09/19 09:00 Resp 18 10/09/19 09:00 BP 100/56 10/09/19 09:00 Pulse Ox 93 L 10/09/19 09:00 Intake & Output 10/08/19 10/09/19 10/09/19 18:59 06:59 18:59 Intake Total 1635.0 300 Output Total 401 Balance 1635.0 -401 300 Weight 57.8 kg 58.3 kg Intake: IV 635 Intake, IV Titration 450.0 Amount Sodium Chloride 0.9% 1, 450.0 000 ml @ 75 mls/hr IV . [id number] [facility] Rx#:[id number] Oral 550 300 Output: Urine 401 Other: # Voids 1 2 1 # Bowel Movements 1 ABP, PAP, CO, CI - Last Documented Arterial Blood Pressure 119/58 - Labs CBC & Chem 7: 10/08/19 11:11 10/09/19 05:05 Labs: Abnormal Lab Results - Last 24 Hours (Table) 10/08/19 10/08/19 10/08/19 Range/Units 11:11 11:11 11:11 APTT 20.6 L (22.0-30.0) sec BUN 19 H (7-17) mg/dL Glucose 155 H (74-99) mg/dL POC Glucose (mg/dL) (75-99) mg/dL AST 38 H (14-36) U/L Troponin I 0.088 H* (0.000-0.034) ng/mL 10/08/19 Range/Units 12:41 APTT (22.0-30.0) sec BUN (7-17) mg/dL Glucose (74-99) mg/dL POC Glucose (mg/dL) 110 H (75-99) mg/dL AST (14-36) U/L Troponin I (0.000-0.034) ng/mL
[2019-10-09 12:16] VITALS: BMI 20.7
--- NOTE | 2019-10-09 13:29 | P.PN ---
Subjective This is a pleasant 73 years old female with past medical history of asthma, hyperlipidemia, mitral valve prolapse, osteoarthritis, skin cancer. Presents because of chest pain. 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 Associated with some sweating but no dizziness or dyspnea. Patient presented to the emergency room and her troponins were elevated at 0.08 and EKG was showing ST elevation in the anterior lateral leads especially at V1- V4. Patient was taken to the [facility] and found to have acute total occlusion of the mid left anterior descending artery with successful stenting and intermediate to severe disease involving the patient denies history of smoking, alcohol or illicit drugs mid RCA 10/09/2019 Patient is seen in the ICU, she is feeling better, no symptoms, no chest pain or dyspnea, no abdominal pain, she had little bowel movement, no nausea vomiting. She is hemodynamically stable and laps looks stable. Creatinine is normal 0.7 Cardiology order an echocardiogram Objective - Vital Signs Vital signs: Vital Signs Temp 97.9 F 10/09/19 12:00 Pulse 71 10/09/19 12:00 Resp 12 10/09/19 12:00 BP 106/59 10/09/19 12:00 Pulse Ox 95 10/09/19 12:00 Intake & Output 10/08/19 10/09/19 10/09/19 18:59 06:59 18:59 Intake Total 1635.0 300 Output Total 401 0 Balance 1635.0 -401 300 Weight 57.8 kg 58.3 kg 58.3 kg Intake: IV 635 Intake, IV Titration 450.0 Amount Sodium Chloride 0.9% 1, 450.0 000 ml @ 75 mls/hr IV . [id number] [facility] Rx#:[id number] Oral 550 300 Output: Urine 401 0 Other: # Voids 1 2 1 # Bowel Movements 1 ABP, PAP, CO, CI - Last Documented Arterial Blood Pressure 119/58 - Exam GENERAL: The patient is alert and oriented x3, not in any acute distress. Well developed, well nourished. HEENT: Pupils are round and equally reacting to light. EOMI. No scleral icterus. No conjunctival pallor. Normocephalic, atraumatic. No pharyngeal erythema. No thyromegaly. CARDIOVASCULAR: S1 and S2 present. No murmurs, rubs, or gallops. PULMONARY: Chest is clear to auscultation, no wheezing or crackles. ABDOMEN: Soft, nontender, nondistended, normoactive bowel sounds. No palpable organomegaly. MUSCULOSKELETAL: No joint swelling or deformity. EXTREMITIES: No cyanosis, clubbing, or pedal edema. NEUROLOGICAL: Gross neurological examination did not reveal any focal deficits. SKIN: No rashes. No petechiae - Labs CBC & Chem 7: 10/08/19 11:11 10/09/19 05:05 Assessment and Plan Assessment: Acute anterior ST elevation myocardial infarction, status post coronary angiogram and stenting of the mid LAD and moderate to severe disease of the mid right coronary artery Hyperlipidemia Mitral valve prolapse Osteoarthritis Asthma, not an active issue Plan: This is a pleasant 73 years old female who presents with acute anterior STEMI, she is status post cardiac cath and stent placement in the LAD. Continue with cardiology recommendation. Continue with dual antiplatelet therapy Labs and medication were reviewed.. Continue same treatment. Continue with symptomatic treatment. Resume home medication. Monitor lytes and vitals. DVT and GI prophylaxis. Further recommendations of the clinical course of the patient
[2019-10-09] MEDS ORDERED: ACETAMINOPHEN TAB 500 MG TAB PO PRN (20:15)
[2019-10-09] MEDS: GABAPENTIN 300 MG CAP PO PRN (20:34)
[2019-10-09] MEDS: ATORVASTATIN 80 MG TAB PO SCH (20:34)
[2019-10-10] MEDS: METOPROLOL TARTRATE 25 MG TAB PO SCH ×2 (08:38→20:16)
[2019-10-10] MEDS: ASPIRIN 81 MG PO SCH (08:38)
[2019-10-10] MEDS: TICAGRELOR 90 MG TAB PO SCH ×2 (08:38→20:16)
[2019-10-10] MEDS: LISINOPRIL 2.5 MG TAB PO SCH (08:38)
--- NOTE | 2019-10-10 08:39 | ECHOF ---
Referral Reason:STEMI MEASUREMENTS -------- HEIGHT: 165.1 cm WEIGHT: 56.7 kg BP: IVSd: 0.8 cm (0.6 - 1.1) LVIDd: 4.1 cm (3.9 - 5.3) LVPWd: 1.0 cm (0.6 - 1.1) IVSs: 0.9 cm LVIDs: 3.3 cm LVPWs: 1.4 cm LA Diam: 3.3 cm (2.7 - 3.8) RVIDd: 2.0 cm (< 3.3) LAESV Index (A-L): 22.03 ml/m Ao Diam: 2.4 cm (2.0 - 3.7) AV Cusp: 1.3 cm (1.5 - 2.6) EPSS: 0.3 cm MV E Viktor: 0.78 m/s MV DecT: 111 ms MV A Viktor: 0.63 m/s MV E/A Ratio: 1.24 RAP: 5.00 mmHg RVSP: 39.09 mmHg MV EF SLOPE: 117.68 mm/s (70 - 150) MV EXCURSION: 18.22 mm (> 18.000) FINDINGS -------- Sinus rhythm. This was a technically good study. The left ventricular size is normal. Left ventricular wall thickness is normal. Overall left vent ricular systolic function is moderate-severely impaired with, an EF between 30 - 35 %. Apical septu m LV wall motion is hypokinetic. Anterseptal Hypokinesis Inferior Hypokinesis The right ventricle is normal in size. The left atrial size is normal. Normal LA size by volume 22+/-6 ml/m2. The right atrial size is normal. There is mild aortic valve sclerosis. There is no evidence of aortic regurgitation. Mild mitral annular calcification present. Mild mitral regurgitation is present. [id number] tricuspid regurgitation present. There is mild pulmonary hypertension. The right ventricular systolic pressure, as measured by Doppler, is 39.09mmHg. There is no pulmonic regurgitation present. The aortic root size is normal. There is no pericardial effusion. CONCLUSIONS -------- 1. Sinus rhythm. 2. This was a technically good study. 3. The left ventricular size is normal. 4. Left ventricular wall thickness is normal. 5. Overall left ventricular systolic function is moderate-severely impaired with, an EF between 30 - 35 %. 6. Apical septum LV wall motion is hypokinetic. 7. Anterseptal Hypokinesis 8. Inferior Hypokinesis 9. The right ventricle is normal in size. 10. The left atrial size is normal. 11. Normal LA size by volume 22+/-6 ml/m2. 12. The right atrial size is normal. 13. There is mild aortic valve sclerosis. 14. Mild mitral annular calcification present. 15. Mild mitral regurgitation is present. 16. Ypqc-[id number]-lqariopx tricuspid regurgitation present. 17. There is mild pulmonary hypertension. 18. The right ventricular systolic pressure, as measured by Doppler, is 39.09mmHg. 19. There is no pulmonic regurgitation present. 20. The aortic root size is normal. 21. There is no pericardial effusion. DIRECTOR LABOR STANDARDS: Maryana Regalado RDCS
--- NOTE | 2019-10-10 12:01 | P.PN ---
Subjective This is a pleasant 73 years old female with past medical history of asthma, hyperlipidemia, mitral valve prolapse, osteoarthritis, skin cancer. Presents because of chest pain. 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 Associated with some sweating but no dizziness or dyspnea. Patient presented to the emergency room and her troponins were elevated at 0.08 and EKG was showing ST elevation in the anterior lateral leads especially at V1- V4. Patient was taken to the [facility] and found to have acute total occlusion of the mid left anterior descending artery with successful stenting and intermediate to severe disease involving the patient denies history of smoking, alcohol or illicit drugs mid RCA 10/09/2019 Patient is seen in the ICU, she is feeling better, no symptoms, no chest pain or dyspnea, no abdominal pain, she had little bowel movement, no nausea vomiting. She is hemodynamically stable and laps looks stable. Creatinine is normal 0.7 Cardiology order an echocardiogram 10/10/2019 Patient sitting in bed comfortable, she denies chest pain or dyspnea. No coughing. She could walk in the hallway today with no issues. She is tolerating diet well, vital signs stable. Echocardiogram showed ejection fraction of 30-35%, with some wall hypokinesia Possible discharge in 24-48 hours once cleared by cardiology team Objective - Vital Signs Vital signs: Vital Signs Temp 97.5 F L 10/10/19 11:18 Pulse 59 L 10/10/19 11:18 Resp 18 10/10/19 11:18 BP 119/56 10/10/19 11:18 Pulse Ox 98 10/10/19 11:18 Intake & Output 10/09/19 10/10/19 10/10/19 18:59 06:59 18:59 Intake Total 900 Output Total 0 0 Balance 900 0 Weight 58.3 kg 56.6 kg Intake: Oral 900 Output: Urine 0 0 Other: Voiding Method Toilet # Voids 1 1 # Bowel Movements 1 1 ABP, PAP, CO, CI - Last Documented Arterial Blood Pressure 119/58 - Exam GENERAL: The patient is alert and oriented x3, not in any acute distress. Well developed, well nourished. HEENT: Pupils are round and equally reacting to light. EOMI. No scleral icterus. No conjunctival pallor. Normocephalic, atraumatic. No pharyngeal erythema. No thyromegaly. CARDIOVASCULAR: S1 and S2 present. No murmurs, rubs, or gallops. PULMONARY: Chest is clear to auscultation, no wheezing or crackles. ABDOMEN: Soft, nontender, nondistended, normoactive bowel sounds. No palpable organomegaly. MUSCULOSKELETAL: No joint swelling or deformity. EXTREMITIES: No cyanosis, clubbing, or pedal edema. NEUROLOGICAL: Gross neurological examination did not reveal any focal deficits. SKIN: No rashes. No petechiae - Labs CBC & Chem 7: 10/08/19 11:11 10/09/19 05:05 Assessment and Plan Assessment: Acute anterior ST elevation myocardial infarction, status post coronary angiogram and stenting of the mid LAD and moderate to severe disease of the mid right coronary artery Hyperlipidemia Mitral valve prolapse Osteoarthritis Asthma, not an active issue Plan: This is a pleasant 73 years old female who presents with acute anterior STEMI, she is status post cardiac cath and stent placement in the LAD. Continue with cardiology recommendation. Continue with dual antiplatelet therapy Labs and medication were reviewed.. Continue same treatment. Continue with symptomatic treatment. Resume home medication. Monitor lytes and vitals. DVT and GI prophylaxis. Further recommendations of the clinical course of the patient
[2019-10-10] MEDS: SPIRONOLACTONE 25 MG TAB PO SCH (13:20)
--- NOTE | 2019-10-10 13:22 | P.PN ---
Subjective This is Eliane Roblero PA-C dictating a progress note on this patient The patient was interviewed and examined by me as well as by Dr. Reynaga Case discussed with Dr. Reynaga and he agrees with the plan of care HPI/interval history Patient is a 73-year-old female with a past medical history of hypertension and dyslipidemia who presented with complaints of chest discomfort. She was found to have an acute anterior ST elevation [place] and underwent emergent heart catheterization. Catheterization revealed acute total occlusion of the mid LAD and intermediate to severe disease involving the mid RCA. She underwent successful stenting to the LAD. Patient seen and examined resting in bed. States she has been walking around the unit and has not had any chest pain. Denies any shortness of breath. No dizziness or syncope. 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 RCA Ischemic cardiomyopathy, EF 30-35% Hypertension Dyslipidemia Asthma PLAN: Continue dual antiplatelet therapy and statins Continue low-dose metoprolol, lisinopril 2.5 mg at noon to avoid hypotension Add low-dose spironolactone 12.5 mg daily Monitor BMP Consider switching to a long-acting metoprolol tomorrow for cardiomyopathy depending on how she tolerates it Monitor telemetry for arrhythmias Objective - Vital Signs Vital signs: Vital Signs Temp 97.5 F L 10/10/19 11:18 Pulse 59 L 10/10/19 11:18 Resp 18 10/10/19 11:18 BP 119/56 10/10/19 11:18 Pulse Ox 98 10/10/19 11:18 Intake & Output 10/09/19 10/10/19 10/10/19 18:59 06:59 18:59 Intake Total 900 Output Total 0 0 Balance 900 0 Weight 58.3 kg 56.6 kg Intake: Oral 900 Output: Urine 0 0 Other: Voiding Method Toilet # Voids 1 1 # Bowel Movements 1 1 ABP, PAP, CO, CI - Last Documented Arterial Blood Pressure 119/58 - Labs CBC & Chem 7: 10/08/19 11:11 10/10/19 12:15
[2019-10-10] MEDS: GABAPENTIN 300 MG CAP PO PRN (19:04)
[2019-10-10] MEDS: ATORVASTATIN 80 MG TAB PO SCH (20:16)
[2019-10-11 06:42] LABS: Calcium 8.4 mg/dL (8.4-10.2); Potassium 4.1 mmol/L (3.5-5.1)
[2019-10-11] MEDS: SPIRONOLACTONE 25 MG TAB PO SCH (09:15)
[2019-10-11] MEDS: ASPIRIN 81 MG PO SCH (09:16)
[2019-10-11] MEDS: METOPROLOL TARTRATE 25 MG TAB PO SCH ×2 (09:16→19:57)
[2019-10-11] MEDS: LISINOPRIL 2.5 MG TAB PO SCH (09:16)
[2019-10-11] MEDS: TICAGRELOR 90 MG TAB PO SCH ×2 (09:16→19:57)
[2019-10-11] MEDS: GABAPENTIN 300 MG CAP PO PRN (11:23)
--- NOTE | 2019-10-11 11:32 | P.PN ---
Subjective This is a pleasant 73 years old female with past medical history of asthma, hyperlipidemia, mitral valve prolapse, osteoarthritis, skin cancer. Presents because of chest pain. 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 Associated with some sweating but no dizziness or dyspnea. Patient presented to the emergency room and her troponins were elevated at 0.08 and EKG was showing ST elevation in the anterior lateral leads especially at V1- V4. Patient was taken to the [facility] and found to have acute total occlusion of the mid left anterior descending artery with successful stenting and intermediate to severe disease involving the patient denies history of smoking, alcohol or illicit drugs mid RCA 10/09/2019 Patient is seen in the ICU, she is feeling better, no symptoms, no chest pain or dyspnea, no abdominal pain, she had little bowel movement, no nausea vomiting. She is hemodynamically stable and laps looks stable. Creatinine is normal 0.7 Cardiology order an echocardiogram 10/10/2019 Patient sitting in bed comfortable, she denies chest pain or dyspnea. No coughing. She could walk in the hallway today with no issues. She is tolerating diet well, vital signs stable. Echocardiogram showed ejection fraction of 30-35%, with some wall hypokinesia Possible discharge in 24-48 hours once cleared by cardiology team 10/11/2019 Patient lying in bed not in distress, no chest pain or dyspnea. No headache or dizziness. Blood pressure 99/50 which is low normal, heart rate 68, she is saturating 93% on room air showing sodium of 106, potassium 4.1 and creatinine 0.8 Patient has been followed closely by cardiology team She remains on aspirin and Brilinta : Metoprolol and lisinopril as per hydropulper recommendation Objective - Vital Signs Vital signs: Vital Signs Temp 98.9 F 10/11/19 08:00 Pulse 68 10/11/19 08:00 Resp 16 10/11/19 08:00 BP 99/50 10/11/19 08:00 Pulse Ox 93 L 10/11/19 08:00 Intake & Output 10/10/19 10/11/19 10/11/19 18:59 06:59 18:59 Intake Total 900 240 Balance 900 240 Weight 55.7 kg Intake: Oral 900 240 Other: Voiding Method Toilet Toilet Toilet ABP, PAP, CO, CI - Last Documented Arterial Blood Pressure 119/58 - Exam GENERAL: The patient is alert and oriented x3, not in any acute distress. Well developed, well nourished. HEENT: Pupils are round and equally reacting to light. EOMI. No scleral icterus. No conjunctival pallor. Normocephalic, atraumatic. No pharyngeal erythema. No thyromegaly. CARDIOVASCULAR: S1 and S2 present. No murmurs, rubs, or gallops. PULMONARY: Chest is clear to auscultation, no wheezing or crackles. ABDOMEN: Soft, nontender, nondistended, normoactive bowel sounds. No palpable organomegaly. MUSCULOSKELETAL: No joint swelling or deformity. EXTREMITIES: No cyanosis, clubbing, or pedal edema. NEUROLOGICAL: Gross neurological examination did not reveal any focal deficits. SKIN: No rashes. No petechiae - Labs CBC & Chem 7: 10/08/19 11:11 10/11/19 05:53 Labs: Abnormal Lab Results - Last 24 Hours (Table) 10/11/19 Range/Units 05:53 Sodium 136 L (137-145) mmol/L Glucose 135 H (74-99) mg/dL Assessment and Plan Assessment: Acute anterior ST elevation myocardial infarction, status post coronary angiogram and stenting of the mid LAD and moderate to severe disease of the mid right coronary artery Hyperlipidemia Mitral valve prolapse Osteoarthritis Asthma, not an active issue Plan: This is a pleasant 73 years old female who presents with acute anterior STEMI, she is status post cardiac cath and stent placement in the LAD. Continue with cardiology recommendation. Continue with dual antiplatelet therapy Labs and medication were reviewed.. Continue same treatment. Continue with symptomatic treatment. Resume home medication. Monitor lytes and vitals. DVT and GI prophylaxis. Further recommendations of the clinical course of the pat ient
[2019-10-11] MEDS: ATORVASTATIN 80 MG TAB PO SCH (19:57)
[2019-10-12] MEDS: SPIRONOLACTONE 25 MG TAB PO SCH (09:37)
[2019-10-12] MEDS: LISINOPRIL 2.5 MG TAB PO SCH (09:37)
[2019-10-12] MEDS: TICAGRELOR 90 MG TAB PO SCH ×2 (09:38→20:36)
[2019-10-12] MEDS: ASPIRIN 81 MG PO SCH (09:38)
[2019-10-12] MEDS: METOPROLOL TARTRATE 25 MG TAB PO SCH ×2 (09:38→20:36)
--- NOTE | 2019-10-12 13:54 | P.PN ---
Subjective Progress Note Date: 10/11/19 This is a pleasant 73-year-old female who presented to the hospital with an acute anterior ST elevation myocardial infarction, she underwent a cardiac catheterization which revealed acute total occlusion of the mid LAD with a large thrombus burden and also she was found to have an intermediate to severe disease in the mid RCA. Patient underwent successful stenting to the LAD with excellent angiographic results and reduction in stenosis from 90-0%. Her echocardiogram with Doppler study was performed which revealed an ejection fraction of 30-35%. Patient was seen and examined today she's been up ambulating in the hallway without any difficulty. Denies any chest discomfort in her breathing overall is stable. Objective - Vital Signs Vital signs: Vital Signs Temp 97.8 F 10/12/19 11:56 Pulse 56 L 10/12/19 11:56 Resp 16 10/12/19 11:56 BP 105/57 10/12/19 11:56 Pulse Ox 98 10/12/19 11:56 Intake & Output 10/11/19 10/12/19 10/12/19 18:59 06:59 18:59 Intake Total 840 480 Balance 840 480 Weight 57 kg Intake: Oral 840 480 Other: Voiding Method Toilet Toilet Toilet ABP, PAP, CO, CI - Last Documented Arterial Blood Pressure 119/58 - Exam PHYSICAL EXAMINATION: GENERAL: 73-year-old female in no acute distress at the time of my examination HEENT: Head is atraumatic, normocephalic. Pupils equal, round. Sclera anicteric. Conjunctiva are clear. Mucous membranes of the mouth are moist. Neck is supple. There is no elevated jugular venous pressure. No carotid bruit is heard. HEART EXAMINATION: Heart S1, S2 normal. No murmur or gallop heard. CHEST EXAMINATION: Lungs are clear to auscultation and precussion. No chest wall tenderness is noted on palpation or with deep breathing. ABDOMEN: Soft, nontender. Bowel sounds are heard. No organomegaly noted. EXTREMITIES: 2+ peripheral pulses with no evidence of peripheral edema and no calf tenderness noted. NEUROLOGIC patient is awake, alert and oriented 3 . - Labs CBC & Chem 7: 10/08/19 11:11 10/11/19 05:53 Assessment and Plan Plan: Assessment and plan #[address] elevation myocardial infarction, status post angioplasty and stenting of the LAD, patient also was found to have intermediate to severe disease involving the mid RCA #2 ischemic cardiomyopathy with documented ejection fraction of 30-35% #3 hyperlipidemia Plan Patient has been encouraged to be up ambulating in the hallway today we'll plan for possible discharge home in 24 hours if stable. DNP note has been reviewed, I agree with a documented findings and plan of care. Patient was seen and examined.
--- NOTE | 2019-10-12 13:56 | P.PN ---
Subjective Progress Note Date: 10/12/19 This is a pleasant 73-year-old female who presented to the hospital with an acute anterior ST elevation myocardial infarction, she underwent a cardiac catheterization which revealed acute total occlusion of the mid LAD with a large thrombus burden and also she was found to have an intermediate to severe disease in the mid RCA. Patient underwent successful stenting to the LAD with excellent angiographic results and reduction in stenosis from 90-0%. Her echocardiogram with Doppler study was performed which revealed an ejection fraction of 30-35%. Patient was seen and examined today she's been up ambulating in the hallway without any difficulty. Denies any chest discomfort in her breathing overall is stable. 10/12/2019 Patient was seen and examined this morning, she's been up ambulating in the mackenzie way without any difficulty. Hemodynamically stable. She has been noted on the monitor to have runs of nonsustained ventricular tachycardia, the longest being 11 beats. Blood pressure 105/50 with a heart rate in the 50s, 98% on room air. Objective - Vital Signs Vital signs: Vital Signs Temp 97.8 F 10/12/19 11:56 Pulse 56 L 10/12/19 11:56 Resp 16 10/12/19 11:56 BP 105/57 10/12/19 11:56 Pulse Ox 98 10/12/19 11:56 Intake & Output 10/11/19 10/12/19 10/12/19 18:59 06:59 18:59 Intake Total 840 480 Balance 840 480 Weight 57 kg Intake: Oral 840 480 Other: Voiding Method Toilet Toilet Toilet ABP, PAP, CO, CI - Last Documented Arterial Blood Pressure 119/58 - Exam PHYSICAL EXAMINATION: GENERAL: 73-year-old female in no acute distress at the time of my examination HEENT: Head is atraumatic, normocephalic. Pupils equal, round. Sclera anicteric. Conjunctiva are clear. Mucous membranes of the mouth are moist. Neck is supple. There is no elevated jugular venous pressure. No carotid bruit is heard. HEART EXAMINATION: Heart S1, S2 normal. No murmur or gallop heard. CHEST EXAMINATION: Lungs are clear to auscultation and precussion. No chest wall tenderness is noted on palpation or with deep breathing. ABDOMEN: Soft, nontender. Bowel sounds are heard. No organomegaly noted. EXTREMITIES: 2+ peripheral pulses with no evidence of peripheral edema and no calf tenderness noted. NEUROLOGIC patient is awake, alert and oriented 3 . - Labs CBC & Chem 7: 10/08/19 11:11 10/11/19 05:53 Assessment and Plan Plan: Assessment and plan #[address] elevation myocardial infarction, status post angioplasty and stenting of the LAD, patient also was found to have intermediate to severe disease involving the mid RCA #2 ischemic cardiomyopathy with documented ejection fraction of 30-35% #3 hyperlipidemia #4 nonsustained ventricular tachycardia Plan We will continue to observe the patient for 24 hours, if she has any further ventricular arrhythmias on the monitor, patient will then be discharged home with a LifeVest. We will also get a limited echo to reevaluate LV function. DNP note has been reviewed, I agree with a documented findings and plan of care. Patient was seen and examined.
--- NOTE | 2019-10-12 15:21 | P.PN ---
Subjective This is a pleasant 73 years old female with past medical history of asthma, hyperlipidemia, mitral valve prolapse, osteoarthritis, skin cancer. Presents because of chest pain. 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 Associated with some sweating but no dizziness or dyspnea. Patient presented to the emergency room and her troponins were elevated at 0.08 and EKG was showing ST elevation in the anterior lateral leads especially at V1- V4. Patient was taken to the Pharmacy Informaticist and found to have acute total occlusion of the mid left anterior descending artery with successful stenting and intermediate to severe disease involving the patient denies history of smoking, alcohol or illicit drugs mid RCA 10/09/2019 Patient is seen in the ICU, she is feeling better, no symptoms, no chest pain or dyspnea, no abdominal pain, she had little bowel movement, no nausea vomiting. She is hemodynamically stable and laps looks stable. Creatinine is normal 0.7 Cardiology order an echocardiogram 10/10/2019 Patient sitting in bed comfortable, she denies chest pain or dyspnea. No coughing. She could walk in the hallway today with no issues. She is tolerating diet well, vital signs stable. Echocardiogram showed ejection fraction of 30-35%, with some wall hypokinesia Possible discharge in 24-48 hours once cleared by cardiology team 10/11/2019 Patient lying in bed not in distress, no chest pain or dyspnea. No headache or dizziness. Blood pressure 99/50 which is low normal, heart rate 68, she is saturating 93% on room air showing sodium of 106, potassium 4.1 and creatinine 0.8 Patient has been followed closely by cardiology team She remains on aspirin and Brilinta : Metoprolol and lisinopril as per personal investment adviser recommendation 10/12/19 pt is with no chest pain or dyspnea , vitals are stable , however cardiology recommend to c/w monitoring for ventricular arrhythmias, as 11 beats of VT is noted on monitor Objective - Vital Signs Vital signs: Vital Signs Temp 97.8 F 10/12/19 11:56 Pulse 56 L 10/12/19 11:56 Resp 16 10/12/19 11:56 BP 105/57 10/12/19 11:56 Pulse Ox 98 10/12/19 11:56 Intake & Output 10/11/19 10/12/19 10/12/19 18:59 06:59 18:59 Intake Total 840 480 Balance 840 480 Weight 57 kg Intake: Oral 840 480 Other: Voiding Method Toilet Toilet Toilet ABP, PAP, CO, CI - Last Documented Arterial Blood Pressure 119/58 - Exam GENERAL: The patient is alert and oriented x3, not in any acute distress. Well developed, well nourished. HEENT: Pupils are round and equally reacting to light. EOMI. No scleral icterus. No conjunctival pallor. Normocephalic, atraumatic. No pharyngeal erythema. No thyromegaly. CARDIOVASCULAR: S1 and S2 present. No murmurs, rubs, or gallops. PULMONARY: Chest is clear to auscultation, no wheezing or crackles. ABDOMEN: Soft, nontender, nondistended, normoactive bowel sounds. No palpable organomegaly. MUSCULOSKELETAL: No joint swelling or deformity. EXTREMITIES: No cyanosis, clubbing, or pedal edema. NEUROLOGICAL: Gross neurological examination did not reveal any focal deficits. SKIN: No rashes. No petechiae - Labs CBC & Chem 7: 10/08/19 11:11 10/11/19 05:53 Assessment and Plan Assessment: Acute anterior ST elevation myocardial infarction, status post coronary angiogram and stenting of the mid LAD and moderate to severe disease of the mid right coronary artery non sustained VT Hyperlipidemia Mitral valve prolapse Osteoarthritis Asthma, not an active issue Plan: This is a pleasant 73 years old female who presents with acute anterior STEMI, she is status post cardiac cath and stent placement in the LAD. Continue with cardiology recommendation. Continue with dual antiplatelet therapy . monitor for ventricular arrhythmias Labs and medication were reviewed.. Continue same treatment. Continue with symptomatic treatment. Resume home medication. Monitor lytes and vitals. DVT and GI prophylaxis. Further recommendations of the clinical course of the patient
--- NOTE | 2019-10-12 19:39 | ECHOF ---
Referral Reason:limited assess lvf MEASUREMENTS -------- HEIGHT: 167.6 cm WEIGHT: 56.7 kg BP: 105/57 IVSd: 0.8 cm (0.6 - 1.1) LVIDd: 3.8 cm (3.9 - 5.3) LVPWd: 1.1 cm (0.6 - 1.1) IVSs: 1.2 cm LVIDs: 2.9 cm LVPWs: 1.0 cm IVSd: 0.9 cm (0.6 - 1.1) LVIDd: 4.3 cm (3.9 - 5.3) LVPWd: 1.0 cm (0.6 - 1.1) IVSs: 1.3 cm LVIDs: 2.8 cm LVPWs: 1.7 cm EDV(Teich): 84 ml ESV(Teich): 29 ml EF(Teich): 65 % %FS: 36 % SV(Teich): 55 ml FINDINGS -------- Sinus rhythm. This was a technically good study. Limited Study The left ventricular size is normal. Left ventricular wall thickness is normal. Overall left vent ricular systolic function is mildly impaired with, an EF between 45 - 50 %. CONCLUSIONS -------- 1. Sinus rhythm. 2. This was a technically good study. 3. Limited Study 4. The left ventricular size is normal. 5. Left ventricular wall thickness is normal. 6. Overall left ventricular systolic function is mildly impaired with, an EF between 45 - 50 %. MECH[employer]ICAL [employer]ER: Negin Verduzco [facility]
[2019-10-12] MEDS: ATORVASTATIN 80 MG TAB PO SCH (20:36)
[2019-10-13] MEDS: GABAPENTIN 300 MG CAP PO PRN (01:22)
[2019-10-13] MEDS: ASPIRIN 81 MG PO SCH (09:14)
[2019-10-13] MEDS: LISINOPRIL 2.5 MG TAB PO SCH (09:14)
[2019-10-13] MEDS: SPIRONOLACTONE 25 MG TAB PO SCH (09:14)
[2019-10-13] MEDS: TICAGRELOR 90 MG TAB PO SCH (09:15)
[2019-10-13] MEDS: METOPROLOL TARTRATE 25 MG TAB PO SCH (09:15)
--- NOTE | 2019-10-13 11:51 | P.PN ---
Subjective Progress Note Date: 10/13/19 This is a pleasant 73-year-old female who presented to the hospital with an acute anterior ST elevation myocardial infarction, she underwent a cardiac catheterization which revealed acute total occlusion of the mid LAD with a large thrombus burden and also she was found to have an intermediate to severe disease in the mid RCA. Patient underwent successful stenting to the LAD with excellent angiographic results and reduction in stenosis from 90-0%. Her echocardiogram with Doppler study was performed which revealed an ejection fraction of 30-35%. Patient was seen and examined today she's been up ambulating in the hallway without any difficulty. Denies any chest discomfort in her breathing overall is stable. 10/12/2019 Patient was seen and examined this morning, she's been up ambulating in the m[address]enzie way without any difficulty. Hemodynamically stable. She has been noted on the monitor to have runs of nonsustained ventricular tachycardia, the longest being 11 beats. Blood pressure 105/50 with a heart rate in the 50s, 98% on room air. 10/13/2019 Patient was seen and examined this morning, she had a repeat echo performed, a limited study, ejection fraction 45-50% on the repeat echo. No evidence of any ventricular arrhythmias on the monitor. Objective - Vital Signs Vital signs: Vital Signs Temp 97.3 F L 10/13/19 04:31 Pulse 96 10/13/19 04:31 Resp 14 10/13/19 04:31 BP 107/58 10/13/19 04:31 Pulse Ox 98 10/13/19 04:31 Intake & Output 10/12/19 10/13/19 10/13/19 18:59 06:59 18:59 Intake Total 720 360 Balance 720 360 Weight 54.9 kg Intake: Oral 720 360 Other: Voiding Method Toilet Toilet ABP, PAP, CO, CI - Last Documented Arterial Blood Pressure 119/58 - Exam PHYSICAL EXAMINATION: GENERAL: 73-year-old female in no acute distress at the time of my examination HEENT: Head is atraumatic, normocephalic. Pupils equal, round. Sclera anicteric. Conjunctiva are clear. Mucous membranes of the mouth are moist. Ne ck is supple. There is no elevated jugular venous pressure. No carotid bruit is heard. HEART EXAMINATION: Heart S1, S2 normal. No murmur or gallop heard. CHEST EXAMINATION: Lungs are clear to auscultation and precussion. No chest wall tenderness is noted on palpation or with deep breathing. ABDOMEN: Soft, nontender. Bowel sounds are heard. No organomegaly noted. EXTREMITIES: 2+ peripheral pulses with no evidence of peripheral edema and no calf tenderness noted. NEUROLOGIC patient is awake, alert and oriented 3 . - Labs CBC & Chem 7: 10/08/19 11:11 10/11/19 05:53 Assessment and Plan Plan: Assessment and plan #[address] elevation myocardial infarction, status post angioplasty and stenting of the LAD, patient also was found to have intermediate to severe disease involving the mid RCA #2 ischemic cardiomyopathy with documented ejection fraction of 30-35% #3 hyperlipidemia #4 nonsustained ventricular tachycardia Plan Limited repeat echocardiogram with Doppler study was performed which revealed an ejection fraction of 45-50%. No further ventricular arrhythmias noted on the monitor. From cardiology's perspective, the patient may be able to be discharged home today. Follow-up appointment with Dr. Roberts in the office. DNP note has been reviewed, I agree with a documented findings and plan of care. Patient was seen and examined.
[2019-10-13 11:56] VITALS: RESP 18
[2019-10-13 11:58] VITALS: BP 98/54; PULSE 55; TEMP 97.8
== END 2019-10-13 14:08 | disposition home or self-care (01) | DRG 247 ==
LOC: EC 11:05 → 2SICU 11:22 → 3SCARD 10-09 15:15
PROVIDERS: ADMIT Hospitalist; ATTEND Hospitalist
PROC: B2111ZZ Fluoroscopy of Multiple Coronary Arteries using Low Osmolar Contrast (ICD-10-PCS; principal; 2019-10-08 11:31)
PROC: 4A023N7 Measurement of Cardiac Sampling and Pressure, Left Heart, Percutaneous Approach (ICD-10-PCS; principal; 2019-10-08 11:31)
PROC: 02C03ZZ Extirpation of Matter from Coronary Artery, One Artery, Percutaneous Approach (ICD-10-PCS; principal; 2019-10-08 11:31)
PROC: 027034Z Dilation of Coronary Artery, One Artery with Drug-eluting Intraluminal Device, Percutaneous Approach (ICD-10-PCS; principal; 2019-10-08 11:31)
DX: I21.09 ST elevation (STEMI) myocardial infarction involving other coronary artery of anterior wall (principal); I47.2 Ventricular tachycardia; I25.5 Ischemic cardiomyopathy; I95.9 Hypotension, unspecified; E78.5 Hyperlipidemia, unspecified; I10 Essential (primary) hypertension; I25.10 Atherosclerotic heart disease of native coronary artery without angina pectoris; I34.1 Nonrheumatic mitral (valve) prolapse; J45.909 Unspecified asthma, uncomplicated; M19.90 Unspecified osteoarthritis, unspecified site; I83.90 Asymptomatic varicose veins of unspecified lower extremity; Z79.899 Other long term (current) drug therapy; Z85.828 Personal history of other malignant neoplasm of skin; Z96.653 Presence of artificial knee joint, bilateral; Z98.82 Breast implant status; Z80.9 Family history of malignant neoplasm, unspecified
CPT/HCPCS: 36415; 71045; 80048; 80053; 82550; 82553; 82565; 83735; 84484; 85025; 85610; 85730; 87324; 93005; 93306; 93308; 93458; 96374; 99291

== ENCOUNTER 2020-04-11 05:51 | Day surgery (SDC) | payer MEDICARE ==
[2020-03-30 15:00] VITALS: BMI 19.3
--- NOTE | 2020-04-05 10:58 | HP ---
HISTORY AND PHYSICAL This is a 74-year-old white female who presented from Dr. Peralta's care with a complaint of pressure and perineal bulge. The patient has recently been , intercourse is extremely uncomfortable. In addition, she reports chafing and discomfort of the vaginal tissues. She denies any vaginal bleeding. REVIEW OF SYSTEMS: Otherwise negative. On examination, she is noted to have a uterine prolapse and cystocele, along with atrophic vaginitis. She is requesting surgical repair of this lesion, declining use of pessary. PAST MEDICAL HISTORY: Significant for an asthma, hyperlipidemia, mitral valve prolapse, myocardial infarction, osteoarthritis, osteopenia. PAST SURGICAL HISTORY: Bilateral breast implants, knee surgery, stent placement, tonsillectomy, kyphoplasty. CURRENT MEDICATIONS: Aldactone 25 mg daily, baby aspirin daily, calcium orally daily, Lipitor 40 mg daily, lisinopril 2.5 mg tablets once daily, Lopressor daily, magnesium, multivitamin daily, and Plavix 75 mg once daily. ALLERGIES: None known. FAMILY HISTORY: Significant for cardiac disease, breast cancer, and diabetes. REPRODUCTIVE HISTORY: Significant for normal spontaneous vaginal deliveries x4, uncomplicated. SOCIAL HISTORY: As stated, patient is recently , she is a former tobacco smoker, but has not smoked in many years. She denies alcohol or drug use. On examination, patient is 5 foot 5 inches, 119 pounds, pulse 95, and blood pressure 122/68. HEENT examination is negative, good dentition, no thyromegaly, no cervical lymphadenopathy. Breasts are bilaterally symmetric to inspection with no nipple discharge, axillary adenopathy, skin changes, or discernible lesions or masses. Abdomen is soft and nontender, active bowel sounds, normal tone without rigidity or guarding, no masses. No herniorrhaphy. No organosplenomegaly. External genitalia do appear age appropriate, with atrophic changes noted. Urethra is unremarkable. Cervix is multiparous, Pap smear is performed. There is a grade 3 uterine prolapse, along with cystocele apparent. No rectocele noted. Good sphincter tone, no hemorrhoids, FIT negative stool. Adnexa are negative to palpation bilaterally. IMPRESSION: Atrophic vaginitis, uterine prolapse, midline cystocele, increasingly symptomatic with dyspareunia and perineal bulge and pressure. Patient wishing surgical repair. PLAN: The patient has been counseled regarding use of pessary and she is declining. She has been given option for second opinion and again declines. We will proceed with vaginal hysterectomy and cystocele repair. Preoperative consultation has been given by [facility], please see attached note. The patient has held the Plavix for 7 days prior to the procedure and will resume this medication postoperatively. The risks of bleeding, infection, perforation or damage to bowel, bladder, ureters, blood vessels, have all been reviewed. All questions answered. The ACOG pamphlet had been given has been given to the patient, which she has reviewed in detail, and she has no further questions. We will proceed with vaginal hysterectomy, cystocele repair at [facility] on April 11. MMODL / IJN: [id number] /
[2020-04-11] MEDS ORDERED: LACTATED RINGERS 1,000 ML IV ONE ×2 (06:20→08:35)
[2020-04-11] MEDS ORDERED: LIDOCAINE 1% (10MG/ML) FOR IV START INTRADERMA PRN (06:22)
[2020-04-11] MEDS ORDERED: DEXAMETHASONE SOD PHOSPHATE 10 MG/ML 1 ML VIAL IV ONE (06:22)
[2020-04-11] MEDS ORDERED: ONDANSETRON 4 MG/2 ML VIAL ONE ×2 (06:27→07:24)
[2020-04-11] MEDS ORDERED: fentaNYL (PF) 50 MCG/ML 2 ML AMP IVP ONE (06:55)
[2020-04-11] MEDS ORDERED: fentaNYL (PF) 50 MCG/ML 2 ML AMP ONE (07:24)
[2020-04-11] MEDS ORDERED: ePHEDrine SULFATE/0.9% NACL/PF 50 MG/5 ML SYRINGE IV ONE (07:24)
[2020-04-11] MEDS ORDERED: NALOXONE 0.4 MG/ML 1 ML VIAL ONE (07:24)
[2020-04-11] MEDS ORDERED: PROPOFOL 10 MG/ML 20 ML VIAL IV ONE (07:24)
[2020-04-11] MEDS ORDERED: MIDAZOLAM 2 MG/2 ML VIAL ONE (07:24)
[2020-04-11] MEDS ORDERED: KETOROLAC 15 MG/ML 1 ML VIAL ONE (07:24)
[2020-04-11] MEDS ORDERED: ROCURONIUM BROMIDE 10 MG/ML 5 ML VIAL IV ONE (07:24)
[2020-04-11] MEDS ORDERED: NEOSTIGMINE 1 MG/ML 10 ML VIAL ONE (07:24)
[2020-04-11] MEDS ORDERED: LIDOCAINE 1% INJ 10MG/ML (20 ML MDV) ONE (07:24)
[2020-04-11] MEDS ORDERED: GLYCOPYRROLATE 0.2 MG/ML 2 ML VIAL ONE (07:24)
[2020-04-11] MEDS ORDERED: VASOPRESSIN 20 UNIT/ML 1 ML VIAL SQ ONE ×2 (07:44→08:11)
[2020-04-11] MEDS ORDERED: BACITRACIN ZINC 500 UNIT/GM OINT 28.4 GM TUBE TOPICAL ONE ×3 (08:14→08:25)
--- NOTE | 2020-04-11 08:40 | P.OP ---
Date of Procedure: 04/11/20 Preoperative Diagnosis: Symptomatic uterine prolapse and cystocele Postoperative Diagnosis: Normal-appearing ovaries, no rectocele. Procedure(s) Performed: Vaginal hysterectomy, cystocele repair Anesthesia: REYNALDOA Surgeon: Shantelle Henley Tower Foreman #1: Ioana Tobin Estimated Blood Loss (ml): 25 IV fluids (ml): 700 Urine output (ml): 150 Pathology: other (Cervix and uterus) Condition: stable Disposition: PACU Operative Findings: Normal-appearing atrophic well suspended ovaries bilaterally Description of Procedure: Patient is brought to the operating suite after a spinal with Duramorph is placed. She's given general anesthetic, and antibiotics, and then placed in the dorsal lithotomy position. The appropriate timeout is performed to assure proper patient and procedural identification. Cervix, vagina, perineal body are all prepped and draped in the usual sterile fashion. Weighted speculum was placed into the vagina. Bladder is drained for approximately 150 mL of clear yellow urine. Anterior lip of the cervix is grasped with a double-tooth tenaculum. Cervix is injected circumferentially with a dilute Pitressin solution. A nooksack blade scalpel is used to incise the mucosa circumferentially, with a V like incision at 6:00. A sponge is used to sweep the mucosa from the underlying fascial plane. Peritoneum is entered at 2:00 and suture tied with 2-0 Vicryl. The large billed speculum is then placed into the vagina. At all times the mucosa is swept well from the operative field to avoid bladder and/or ureteral injury. The right uterosacral cardinal ligament complex is identified, clamped, cut, tied with a Elisabeth stitch of 0 Vicryl and held laterally with hemostats. Same procedure is carried out contralaterally. Uterine vasculature is identified, c lamped cut and suture ligated. 2 additional pedicles are taken superior to the vessels bilaterally. The uterus is then "walked out" posteriorly. Anterior peritoneum is entered sharply. Kathryn clamps are used across the final pedicles and the cervix and uterus are removed and sent to pathology. Bilateral ovaries are inspected and noted to be atrophic and normal, therefore left in situ. The pedicles are tied with 0 Vicryl, flashed, and retied for excellent hemostasis. All pedicles are hemostatically intact. The shallow billed speculum is then placed back into the vagina. The peritoneum is closed in a pursestring fashion with care to avoid any bowel injury. The uterosacral cardinal ligaments are brought across to incorporate the opposite ligament and vaginal mucosa. An additional [id number] suture of 0 Vicryl is placed inferior to this to close the vagina. The anterior mucosa is then held with Allis clamps and the anterior repair is commenced. The same dilute Pitressin solution is used to inject the mucosa in the midline. Metzenbaum scissors are used to undermine and open the tissue. It is held laterally with Allis clamps. Yanes catheter is now placed, urine is clear. 2-0 Vicryl sutures used in an interrupted fashion to bring the fascial edges together in the midline, thereby completely reducing the cystocele. Metzenbaum scissors are used to trim the redundant mucosa. 2-0 Vicryl suture is used now in a running locking fashion to close the anterior vaginal wall. The vagina is packed with one-inch iodophor gauze with basic tracing. Yanes is noted to be draining clear urine. All sponge needle and enhancement counts are correct at the end of the procedure. Patient is given Toradol. She is brought back to the recovery room in excellent condition with a blood pressure of 117/62, pulse 61, 100% O2 saturation. No complications encountered.
[2020-04-11] MEDS ORDERED: diphenhydrAMINE 50 MG/ML 1 ML VIAL IVP PRN (08:41)
[2020-04-11] MEDS ORDERED: IBUPROFEN 600 MG TAB PO PRN (08:41)
[2020-04-11] MEDS ORDERED: ONDANSETRON 4 MG/2 ML VIAL IVP PRN (08:41)
[2020-04-11] MEDS ORDERED: SIMETHICONE 80 MG CHEWABLE PO PRN (08:41)
[2020-04-11] MEDS ORDERED: METOCLOPRAMIDE 5 MG/ML 2 ML VIAL IVP PRN (08:41)
[2020-04-11] MEDS: LACTATED RINGERS 1,000 ML IV SCH (10:52)
[2020-04-11] MEDS ORDERED: SODIUM CHLORIDE 0.9% 500 ML 500 ML IV ONE (18:12)
[2020-04-12] MEDS: LACTATED RINGERS 1,000 ML IV SCH (01:58)
--- NOTE | 2020-04-12 08:21 | P.DS ---
Providers Date of admission: 04/11/2020 Expected date of discharge: 04/12/20 Attending physician: Shantelle Henley Primary care physician: [facility] Course: This is a 74-year-old white female, recently remarried, who presented with symptomatic uterine prolapse and cystocele. Patient states that this has become an issue with her intimate life with her new . She is requesting surgical repair, declining the option of pessary use. Please see my dictated history and physical for details. Patient underwent a vaginal hysterectomy and anterior colporrhaphy under my care yesterday. She did very well intraoperatively. Ovaries appeared normal and were high in the pelvis, left in situ per her wishes. Vaginal packing was placed along with Yanes catheter. Please see dictated operative note for details. This morning the patient appears very well. She is ambulating, passing flatus without difficulty. Vital signs are stable and she is afebrile. Yanes catheter and vaginal packing had been removed. Diet and activity have been advanced. Patient has showered. She is judged to be in very good condition for discharge home, pending successful voiding. She is reminded no intercourse, tampons or douching. She will use [id number] Advil or Aleve, or Motrin as needed for pain. She will restart her Plavix tomorrow. I have reminded her to follow-up with me in the office in 2 weeks. No heavy lifting. Minimal housework. She will call with any fevers shakes or chills, bloody vaginal discharge, with any pain not alleviated by [id number] products, or indeed with any difficulties or concerns. Patholo gy report is pending at time of this dictation. Patient Condition at Discharge: Good Plan - Discharge Summary Discharge Rx Participant: No New Discharge Prescriptions: No Action Aspirin 81 mg PO DAILY #30 chew lisinopriL [Zestril] 2.5 mg PO DAILY #30 tab Metoprolol Tartrate [Lopressor] 12.5 mg PO BID Atorvastatin [Lipitor] 40 mg PO HS Clopidogrel [Plavix] 75 mg PO DAILY Discharge Medication List Aspirin 81 mg PO DAILY #30 chew 10/11/19 [Rx] lisinopriL [Zestril] 2.5 mg PO DAILY #30 tab 10/11/19 [Rx] Atorvastatin [Lipitor] 40 mg PO HS 03/30/20 [History] Clopidogrel [Plavix] 75 mg PO DAILY 03/30/20 [History] Metoprolol Tartrate [Lopressor] 12.5 mg PO BID 03/30/20 [History] Follow up Appointment(s)/Referral(s): Shantelle Henley MD [STAFF PHYSICIAN] - 2 Weeks Discharge Disposition: HOME SELF-CARE
[2020-04-12] MEDS ORDERED: ACETAMINOPHEN TAB 325 MG TAB PO PRN (08:42)
[2020-04-12 10:41] VITALS: RESP 16
[2020-04-12 16:48] VITALS: BP 134/70; PULSE 78; TEMP 98.5
== END 2020-04-12 19:42 | disposition home or self-care (01) ==
LOC: OR 05:51 → 6PED 09:07 → OR 04-12 19:42
PROVIDERS: ATTEND Obstetrics & Gynecology
DX: N81.4 Uterovaginal prolapse, unspecified (principal); N95.2 Postmenopausal atrophic vaginitis; N76.1 Subacute and chronic vaginitis; N94.10 Unspecified dyspareunia; I25.10 Atherosclerotic heart disease of native coronary artery without angina pectoris; I25.2 Old myocardial infarction; J45.909 Unspecified asthma, uncomplicated; I10 Essential (primary) hypertension; E78.5 Hyperlipidemia, unspecified; I34.1 Nonrheumatic mitral (valve) prolapse; I25.5 Ischemic cardiomyopathy; I95.2 Hypotension due to drugs; M85.80 Other specified disorders of bone density and structure, unspecified site; Z95.5 Presence of coronary angioplasty implant and graft; Z79.02 Long term (current) use of antithrombotics/antiplatelets; Z79.82 Long term (current) use of aspirin; Z79.899 Other long term (current) drug therapy; Z98.890 Other specified postprocedural states; Z96.653 Presence of artificial knee joint, bilateral; Z90.89 Acquired absence of other organs; Z87.891 Personal history of nicotine dependence; Z80.3 Family history of malignant neoplasm of breast; Z82.49 Family history of ischemic heart disease and other diseases of the circulatory system; Z83.3 Family history of diabetes mellitus
CPT/HCPCS: 86900; 86901; 88305; 86850; 36415; 58260; 57240; J2250; J1100; J2310; J2710; J0690; J2405; J2001; J3010; J1885; J2704